=== PATIENT | male | born 1965 | race Caucasian/White ===

== ENCOUNTER 2020-02-07 17:54 | Emergency (ER) | payer OTHER, SELFPAY ==
[2020-02-07 17:56] VITALS: BP 140/93; PULSE 84; RESP 18; TEMP 36.6; O2SAT 99; BMI 24.4
--- NOTE | 2020-02-07 18:02 | ED.RN ---
this rn called to see if drug test was needed. Joan Barraza patient financial services manager said it was completed on site. no need to at hospital
--- NOTE | 2020-02-07 18:04 | ED.VISSUMM ---
- ER Visit Summary Date of Service: 02/07/20 Chief Complaint: Laceration History of Present Illness: The patient is a [address] Bret Batista. He is unsure when his last tetanus shot was. He is right-hand dominant. 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 He denies any pain. No paresthesias distally. Physical Examination: Vitals: Stable. Afebrile. General: Well-nourished and well-developed. Head: Normocephalic atraumatic. Neck: Supple, no lymphadenopathy. No JVD. Nontender. Cardiovascular: Regular rate and rhythm. No murmurs. Respiratory: No respiratory distress. Clear to auscultation bilaterally. Abdominal: Soft, nontender, nondistended, normal bowel sounds. No guarding, rebound, or peritoneal signs. Back: Nontender. Extremities: 2 cm laceration to the anterior surface of the proximal left forearm. This extends to subcutaneous fat only. There is no muscle or tendon involvement. He is neuro vas intact distally. Normal sensation light touch and less than 2-second cap refill. Skin: Normal color, no rash. Neurologic: Alert and oriented ?3. Cranial nerves II through XII are intact. Normal strength and sensation. Psych: Normal affect. Emergency Department Course and Treatment: Patient had his tetanus updated. His wound was anesthetized and repaired. He tolerated this well. Treatment Plan: Patient be discharged instructed to follow-up with [facility] in 10 to 14 days for suture removal. Return to the emergency department for any worsening symptoms. Disposition: To home in improved and stable condition. Impression: 1. Laceration left forearm, 2 cm, repaired. Procedure note: Wound was cleansed with chlorhexidine soap. Anesthetized with 1% lidocaine without epinephrine. Copiously irrigated with normal saline. Wound was explored there is no foreign material present. It was closed with 5 simple interrupted 4-0 ethilon sutures. The patient tolerated it well. This note was generated with [employer] dictation software. It may contain incorrect words, spelling, and punctuation that were not noted in review of the chart prior to signing ED Disposition - Plan for ED Patient: Instructions: ED Laceration Ext Sutr Stap Tape Referrals: [facility]GROUP OF PHYSICIANS] - 10-14 Days suture removal
[2020-02-07] MEDS: Diphth,Pertuss(Acell),Tet Vac 0.5 ML Vial IM (18:35)
--- NOTE | 2020-02-07 18:35 | ED.RN ---
PT GIVEN FROI. DRUG TESTING COMPLETED PRIOR TO ARRIVAL TO ED.
[2020-02-07 19:09] VITALS: RESP 18
== END 2020-02-07 19:11 | disposition home or self-care (01) ==
LOC: ED 18:30
PROVIDERS: Emergency Provider Emergency Medicine; PCP Family Medicine
DX: S51.812A Laceration without foreign body of left forearm, initial encounter (principal); W26.8XXA Contact with other sharp object(s), not elsewhere classified, initial encounter; Y93.9 Activity, unspecified; Y92.9 Unspecified place or not applicable
CPT/HCPCS: 12001; 90471; 90715; 99283

== ENCOUNTER → 2023-02-14 | Outpatient (CLI) | payer OTHER, SELFPAY | END | disposition home or self-care (01) | LOC: MTLAB 13:20 | PROVIDERS: PCP Family Medicine; Referring Provider Physician Assistant Surgical; Visit Provider Physician Assistant Surgical | DX: K58.9 Irritable bowel syndrome, unspecified (principal) | CPT/HCPCS: 87506 ==

== ENCOUNTER → 2023-05-29 | Outpatient (CLI) | payer OTHER, SELFPAY ==
--- NOTE | 2023-05-29 17:09 | RAD_ITS ---
INDICATION: injury EXAMINATION/TECHNIQUE: X-RAY - RIGHT FOOT XR Toes Min 2 Views 3 VIEWS COMPARISON: No relevant prior comparison study available FINDINGS: SOFT TISSUES: No soft tissue swelling or gas. No radiopaque foreign body. BONES/JOINTS: No acute fracture or subluxation.. Normal alignment. Preservation of the joint space.. No sclerotic or destructive changes observed. RAD/Toe(s) Min 2 Views IMPRESSION: No fracture or malalignment. Electronically Signed: Connor Hopper MD at 17:32 EST ,
== END | disposition home or self-care (01) ==
LOC: MTRAD 17:09
PROVIDERS: PCP Family Medicine; Referring Provider Physician Assistant; Visit Provider Physician Assistant
DX: S99.921A Unspecified injury of right foot, initial encounter (principal)
CPT/HCPCS: 73660

== ENCOUNTER → 2023-10-29 | Outpatient (CLI) | payer OTHER, SELFPAY ==
[2023-10-29 16:42] LABS: Absolute Lymphocyte Count 1.75 X10^3/uL (0.83-4.51); Absolute Neutrophil Count 8.5 X10^3/uL (2.0-7.7); Basophil# 0.03 X10^3/uL; Basophil% 0.3 % (0-1); Eosinophil# 0.07 X10^3/uL; Eosinophils% 0.6 % (0-5); Hematocrit 44.9 % (40-54); Hemoglobin 14.8 g/dL (13.0-16.5); Lymphocyte # 1.75 X10^3/ul (0.83-4.51); Lymphocyte % 15.8 % (19-41); Mean Corpuscular Hgb 28.9 pg (27.0-32.0); Mean Corpuscular Volume 87.7 fL (80-94); Mean Platelet Vol. 12.4 fl (6.2-12.0); Monocyte# 0.66 X10^3/uL; NRBC Flagged by Analyzer 0 % (0-5); Neutrophil # 8.53 X10^3/uL (2.7-7.7); Neutrophil % 76.8 % (47-70); POSITIVE COUNT YES; RBC Distribution Width CV 13.2 % (11.6-14.6); RBC Distribution Width SD 42.3 fl (35.1-43.9); Red Blood Count 5.12 M/mm3 (4.6-6.2); White Blood Count 11.1 K/mm3 (4.4-11.0)
[2023-10-29 17:12] LABS: Differential Indicated SCAN CRITERIA MET
[2023-10-29 17:14] LABS: Platelet Estimate ADEQUATE (ADEQ); Red Cell Morphology N CHROM NORMAL (NORM C&C)
[2023-10-29 17:29] LABS: ALB/GLOB Ratio 0.7 RATIO (0.9-2.4); AST(SGOT) 23 U/L (15-37); Alanine Aminotransfer ALT/SGPT 20 U/L (16-61); Albumin, Serum 2.8 g/dL (3.2-5.0); Alkaline Phosphatase 82 U/L (45-117); Anion Gap 7 (5-15); BUN 10 mg/dL (7-18); BUN/Creat Ratio 10.2 RATIO (10-20); Calcium,Total 8.7 mg/dL (8.5-10.1); Chloride 104 mmol/L (98-107); Creatinine, Serum 0.98 mg/dL (0.70-1.30); EST Glomerular Filtration Rate 83 mL/min (>60); Est Glom Filt Rate - Afr Amer 100 mL/min (>60); Globulin 3.8 g/dL (2.2-4.2); Glucose 88 mg/dL (74-106); Lipase 41 U/L (13-75); Potassium 3.2 mmol/L (3.5-5.1); Protein, Total 6.6 g/dL (6.4-8.2); Sodium Level 139 mmol/L (136-145)
== END | disposition home or self-care (01) ==
LOC: BIMLAB 16:08
PROVIDERS: PCP Family Medicine; Referring Provider Nurse Practitioner; Visit Provider Nurse Practitioner
DX: R19.7 Diarrhea, unspecified (principal)
CPT/HCPCS: 36415; 80053; 83690; 85025

== ENCOUNTER → 2023-10-30 | Outpatient (CLI) | payer SELFPAY ==
[2023-10-31 16:10] LABS: Giardia Lamblia, Stool EIA Negative (Negative)
== END | disposition home or self-care (01) ==
LOC: LABSPEC 09:36
PROVIDERS: PCP Family Medicine; Visit Provider Nurse Practitioner
DX: R19.7 Diarrhea, unspecified (principal); K58.9 Irritable bowel syndrome, unspecified
CPT/HCPCS: 87329; 87493; 87506

== ENCOUNTER 2023-11-22 06:16 | Day surgery (SDC) | payer SELFPAY ==
[2023-11-22] VITALS (8 sets, daily range): BP systolic 94–103; BP diastolic 54–70; PULSE 73–83; RESP 16–18; TEMP 36.3–36.9; O2SAT 98–100; BMI 22.6
--- NOTE | 2023-11-22 | COLBX_PTH ---
PATIENT: EMERALD HILL LOC: EN U#:[id number] AGE/SX: 58/M ROOM: RE11/22/[address]: Dr. Anjum George MD : 1965 BED: DIS: 11/22/2023 SPEC #: [id number] RECD: 11/22/23 12:53 STATUS: TALIA HUFF #: [id number] STEFFANY: 11/22/23 00:[address]: Anjum George DEPT: SURGICAL PATHOLOGY RECD BY: Nehemiah Harrington ENTERED: 11/22/23 13:15 SP TYPE: COLON BX OTHR DR: Dr. Bret Batista, DO Tissues: A - COLON BIOPSY B - Rectum, NOS Procedures: Surgery Specimen Level IV HEADER OPERATION: Colonoscopy with biopsies PRE-OP DIAGNOSIS: Bloody diarrhea TISSUE SUBMITTED: A- Random biopsies, B- Rectal biopsy MICROSCOPIC DIAGNOSIS A. Colon, random biopsies: Moderate chronic active colitis. See microscopic description and comment. B. Rectal biopsy: Moderate chronic active colitis. See microscopic description and comment. CLAUDE/ 11/25/2023 COMMENT A, B. The findings are consistent with inflammatory bowel disease. Correlation with clinical, endoscopic findings and appropriate follow up are necessary. MICROSCOPIC DESCRIPTION Slides are reviewed. A, B. Both specimens show similar features. Specimens show fragments of colonic mucosa with focal ulceration, acute and chronic inflammatory cells infiltrate in the lamina propria, cryptitis, crypt abscesses, and glandular distortion. Granulomas are not seen. No evidence of dysplasia. GROSS DESCRIPTION A. Received in fixative is one container labeled with the patient's name and designated Random biopsies. The specimen consists of multiple irregular fragments of light rubi soft tissue that in aggregate measure 2.0 x 0.5 x 0.1 cm. The specimen is totally submitted in one cassette. B. Received in fixative is one container labeled with the patient's name and designated Rectal biopsy. The specimen consists of multiple irregular fragments of light rubi soft tissue that in aggregate measure 1.0 x 0.5 x 0.1 cm. The specimen is totally submitted in one cassette. CLAUDE/ 11/22/2023 TC:2 CPT:06705l5
[2023-11-22] MEDS: Lactated Ringers 1,000 ML 15 ML IV (06:50)
--- NOTE | 2023-11-22 06:59 | HP.PCM_ITS ---
History and Physical Date of Admission: 11/22/23 Intake Vital Signs 10/28/2414:43 11/11/2407:44 Height 6 ft 1 in 6 ft 1 in Weight: 181 lb 4 oz 180 lb BMI 23.9 23.7 BP 138/80 H 105/66 Blood Pressure Location Lt brachial Rt brachial Position Sitting Sitting Respiration 16 18 Pulse 90 76 Pulse Source Monitor Monitor Temp 97.3 F L 97.6 F L Temp Source Temporal Temporal Pulse Oximetry (%) 96 96 Oxygen Delivery Method room air room air Intake Visit Reasons: Diarrhea Chief Complaint: diarrhea Is patient in pain?: No Allergies Penicillins Allergy (Verified 11/11/23 08:45) NEEDS FOLLOW-UP Medications ?Medication ?Instructions ?Recorded ?Confirmed ?Type NK 02/07/20 11/11/23 History Have you fallen in the past year?: No PFSH Medical History Avulsion of skin of toe Contusion of right great toe without damage to nail No active medical problems Surgical History No pertinent past surgical history Social History (Updated 11/11/23 @ 08:44 by Maggie Villegas LPN) Smoking Status: Never smoker alcohol intake: never substance use type: does not use HPI HPI HPI: Patient is a 58-year-old male here for diarrhea. He says this has been going on for several weeks. He says occasionally it is bloody. Occasionally it is just watery. He says that he was not eating for a long time because it would cause immediate diarrhea. He had stool studies performed. He does have a history of Campylobacter infection last year. Stool studies were all negative. He does n ot complain of any abdominal pain. He does not have any nausea or vomiting. His last colonoscopy was over 10 years ago. He has a family history of colitis but no colon cancer. ROS General General: Yes weight change (loss ) and fatigue; No appetite, colon cancer, breast cancer or weakness HEENT HEENT: No difficulty swallowing, eye injury, eye surgery, swollen glands or hoarseness Endo Endocrine: No thyroid disease, diabetes mellitus, thyroid cancer, Hair loss, heat intolerance or cold intolerance Skin Skin: No rash or changing moles Musc Musculoskeletal: No back problems, arthritis, rheumatoid arthritis, gout or joint pain Cardio Cardiovascular: No murmur, pacemaker, heart disease, atrial fibrillation, high blood pressure, heart attack, heart stent, palpitations, shortness of breat with exertion or chest pain Psych Psychiatric: No depression, anxiety or hearing voices Resp Respiratory: No shortness of breath, No sleep apnea, No cough, No COPD, No asthma, No emphysema and No wheezing Gastro Gastrointestinal: No abdominal pain, No nausea or vomiting, Yes diarrhea, No constipation, Yes blood in stool, No acid reflux, Yes hemorrhoids, No ulcers, No gallbladder problem and No black,tarry stools Norman Hematologic: No blood thinners, No blood disorders, No bleeding, No anemia and No blood clots Neuro Neurologic: No numbness, No tingling and No weakness Exam Const General: cooperative Orientation: alert and oriented x3 HENMT Head: normal to inspection Neck Neck: normal visual inspection and full ROM Chest Chest palpation & inspection: normal inspection of the chest Resp Effort & Inspection: normal respiratory effort Auscultation: clear to auscultation bilaterally Cardio Rate: regular rate Rhythm: regular rhythm GI Inspection: non-distended Palpation: soft and nontender Skin General: no rashes or lesions noted Neuro General: patient alert and patient oriented x3 Extrem General: full ROM Psych Appearance: grossly normal Mental Status: mental status grossly normal Assessment and Plan Assessment and Plan (1) Bloody diarrhea: Status: Acute Plan: The patient is having diarrhea which is occasionally bloody. This is been going on for a few weeks. I recommend colonoscopy to evaluate. He is not complaining of any upper abdominal pain or reflux. I explained endoscopy in detail to the patient. I explained the risks including but not limited to stroke or heart attack with anesthesia, perforation of the GI tract, bleeding, infection. I explained that any of these could necessitate further emergency surgery. The patient understands and all questions were answered sufficiently. The patient wishes to proceed with procedure. I will take random biopsies of the colon to rule out microscopic colitis. Anjum George MD Pager: [facility] [address] [place] [address], [address] [place] [address] Office: I have examined the patient and the H&P has been reviewed. There are no clinical changes since date of exam.
--- NOTE | 2023-11-22 07:23 | PCM.PRE.AN2 ---
ASA Classification* ASA Classification ASA Classification: 2 Assessment & Plan Anesthesia* Anesthesia Assessment Anesthesia Assessment: Discussed sedation and/or anesthesia options, risks, benefits, and alternatives with patient/parents/legal guardian/POA. Questions invited. The patient/parents/legal guardian/POA seems to understand and agrees to proceed with anesthesia plan. Reviewed the physical assessment, medical history, allergy history and patient home medications list prior to surgery/procedure/anesthetic and documented any changes. Performed airway and anesthesia risk assessments. Anesthesia Type Anesthesia Type: MAC (see written pre anesthesia record for full assessment) Anesthesia Focused Assessment* Temperature: 98.5 F Pulse Rate: 83 Blood Pressure: 103/70 Respiratory Rate: 17 Pulse Ox: 98 Airway Assessment Mouth opens: >3 cm Mallampati Score: II Focused Labs Anesthesia Preop lab: CBC WBC 11.1 K/mm3 (4.4-11.0) H 10/29/23 16:10 RBC 5.12 M/mm3 (4.6-6.2) 10/29/23 16:10 Hgb 14.8 g/dL (13.0-16.5) 10/29/23 16:10 Hct 44.9 % (40-54) 10/29/23 16:10 Plt Count TNP 10/29/23 16:10 CHEMISTRY Potassium 3.2 mmol/L (3.5-5.1) L 10/29/23 16:10 Sodium 139 mmol/L (136-145) 10/29/23 16:10 BUN 10 mg/dL (7-18) 10/29/23 16:10 Creatinine 0.98 mg/dL (0.70-1.30) 10/29/23 16:10 Glucose 88 mg/dL (74-106) 10/29/23 16:10 COAG Pre-Assessment Diagnosis/Proposed Procedure Planned Operative Procedure(s): COLONOSCOPY Anesthesia History Anesthesia History - solid waste management engineer: Anesthesia History - solid waste management engineer Hx Hospitalization No 11/15/23 14:07 Any Problems With Anesthesia No 11/15/23 14:07 Cholinesterase deficiency No 11/15/23 14:07 You/Your Family Experience No 11/15/23 14:07 fever (hyperthermia) with Relationship Recent Exposure to Contagious No 11/22/23 06:47 Disease Does patient have nerve No 11/15/23 14:07 stimulator Patient instructed to have device shut off --Does patient have Pacemaker No 11/22/23 06:47 or ICD? When Was Last Pacemaker Check QUESTION #4 FULL TEXT: You/Your Family Experience fever (hyperthermia) with Anesthesia Last Oral Intake Last Oral intake: Last Oral Intake NPO since 00:00 11/22/23 06:47 Meds taken in AM with sips of No 11/22/23 06:47 water? Meds patient instructed to take am of surgery PONV PONV - solid waste management engineer: PONV - solid waste management engineer Female No 11/15/23 14:07 HX of Motion Sickness No 11/15/23 14:07 HX of N/V After Surgery No 11/15/23 14:07 Non-Smoker Yes 11/15/23 14:07 Duration of Surgery greater No 11/15/23 14:07 than 60 minutes Number of Risk Factors 1 11/15/23 14:07 PONV Score Low Risk 11/15/23 14:07 Height & Weight Height & Weight: Anesthesia: Height & Weight Height 6 ft 1 in 11/22/23 06:47 Weight: 78 kg 11/22/23 06:47 Body Mass Index (BMI) 22.6 11/22/23 06:47 Respiratory Assessment Respiratory Assessment - solid waste management engineer: Respiratory Tract Infection Hx - solid waste management engineer Hx Respiratory Tract Infection No 11/15/23 14:07 STOP Sleep Apnea STOP Sleep Apnea - solid waste management engineer: STOP Sleep Apnea - solid waste management engineer Hx Hypertension No 11/15/23 14:07 Hx Sleep Apnea No 11/15/23 14:07 CPAP BIPAP Do you snore loudly (louder No 11/15/23 14:07 than talking or can be heard Do you often feel tired/ No 11/15/23 14:07 fatigued/ sleepy during daytime? Has anyone observed you stop No 11/15/23 14:07 breathing during sleep? STOP Results Negative 11/15/23 14:07 QUESTION #5 FULL TEXT : Do you snore loudly (louder than talking or can be heard through closed doors)? Tobacco Use History Tobacco Use History - solid waste management engineer: Tobacco Use History - solid waste management engineer Tobacco Use Smoking Status Never smoker 11/15/23 14:07 Hx Tobacco Use No 11/15/23 14:07 Years Smoking Packs Smoked per Day Smoking Cessation Date was within the last 15 years Hx Smoking Cessation Date Hx Smoking Cessation Counseling Hematologic Medial History Hematologic Hx - solid waste management engineer: Hematologic Medical Hx - senior computer specialist Hx of Blood Transfusion No 11/15/23 14:07 Hx of Transfusion in last 3 No 11/15/23 14:07 Months Date of Last Transfusion (if within last 3 months) Ever experience any problems No 11/15/23 14:07 with transfusion(s)? Specify any problems Hx of Preganancy in last 3 N/A 11/15/23 14:07 Months Nurse Filling Out Transfusion [id number] 11/15/23 14:07 & Questions: Date: 11/15/23 11/15/23 14:07 Time: 14:10 11/15/23 14:07 Patient unable to answer at this time (ie. confused, unrespo /Reproduction History /Reproductive History - solid waste management engineer: /Reproductive Hx- solid waste management engineer Hx Now Gestational Age (in weeks): EDC: Hx Hx Para Hx Section SAB Active Medications Active Medications: Current Medications Generic Name Dose Route Start Last Admin Trade Name Freq PRN Reason Stop Dose Admin Lactated Ringer's 1,000 mls @ 15 mls/hr 11/22/23 06:30 11/22/23 06:50 IV 15 mls/hr .Q48H LAWSON Administration PFSH Medical History Diarrhea Non-smoker Avulsion of skin of toe Contusion of right great toe without damage to nail No active medical problems Home Medications ?Medication ?Instructions ?Recorded ?Last Taken ?Type NK 02/07/20 Unknown History Allergy/AdvReac Type Severity Reaction Status Date / Time Penicillins Allergy NEEDS Verified 11/22/23 06:46 FOLLOW-UP Social History (Updated 11/11/23 @ 08:44 by Maggie Villegas LPN) Smoking Status: Never smoker alcohol intake: never substance use type: does not use Review of Systems (Anesthesia) ROS Narrative System reviewed and no additional complaints, except as documented.
--- NOTE | 2023-11-22 08:01 | PCM.POST.ANE ---
Anesthesia: Postop Eval I Current Vital Signs Temperature: 97.4 F Pulse Rate: 75 Blood Pressure: 97/57 Respiratory Rate: 16 Pulse Ox: 99 Oxygen Delivery Method: Room Air Assessment Airway patent: Yes Spontaneous unlabored respirations: Yes Mental status: Awake and Calm nausea: No Vomiting: No Anesthesia Complication: No Fluid Hydration Crystalloid volume administer (ml): 900 Total IV fluid infused: 900 Progress Note Anesthesia document: Postop Eval 1 completed: Yes
--- NOTE | 2023-11-22 08:06 | OP.COLON_ITS ---
Patient Name: Job Crook Procedure Date: 11/22/2023 7:13 AM Date of : 1965 Age: 58 Procedure: Colonoscopy Indications: Rectal bleeding, Chronic diarrhea Providers: Anjum George MD Referring MD: Bret Batista Medicines: Propofol per Anesthesia Patient Profile: This is a 58 year old male. Refer to note in patient chart for documentation of history and physical. Last Colonoscopy: none. The patient's first colonoscopy is today. Complications: No immediate complications. Procedure: Pre-Anesthesia Assessment: - Prior to the procedure, a History and Physical was performed, and patient medications and allergies were reviewed. The patient's tolerance of previous anesthesia was also reviewed. The risks and benefits of the procedure and the sedation options and risks were discussed with the patient. All questions were answered, and informed consent was obtained. Prior Anticoagulants: The patient has taken no anticoagulant or antiplatelet agents. After reviewing the risks and benefits, the patient was deemed in satisfactory condition to undergo the procedure. After I obtained informed consent, the scope was passed under direct vision. Throughout the procedure, the patient's blood pressure, pulse, and oxygen saturations were monitored continuously. The colonoscope was introduced through the anus and advanced to the cecum, identified by appendiceal orifice and ileocecal valve. The colonoscopy was performed without difficulty. The patient tolerated the procedure well. The quality of the bowel preparation was good. The ileocecal valve, appendiceal orifice, and rectum were photographed. Scope In: 7:36:48 AM Scope Withdrawal Time 0 hours 11 minutes 47 seconds Scope Out: 7:53:52 AM Total Procedure Duration Time 0 hours 17 minutes 4 seconds Findings: Diffuse moderate inflammation characterized by friability and shallow ulcerations was found in the rectum. Biopsies were taken with a cold forceps for histology. The exam was otherwise without abnormality on direct and retroflexion views. 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 Biopsied. - The examination was otherwise normal on direct and retroflexion views. Recommendation: - Discharge patient to home. - Resume previous diet. - Continue present medications. - Await pathology results. - Repeat colonoscopy for surveillance based on pathology results. Procedure Code(s): --- Professional --- 30862, Colonoscopy, flexible; with biopsy, single or multiple Diagnosis Code(s): --- Professional --- K51.311, Ulcerative (chronic) rectosigmoiditis with rectal bleeding K62.5, Hemorrhage of anus and rectum K52.9, Noninfective gastroenteritis and colitis, unspecified CPT copyright 2021 [employer]. All rights reserved. The codes documented in this report are preliminary and upon programs director review may be revised to meet current compliance requirements. Anjum George MD 11/22/2023 8:05:38 AM This report has been signed electronically. Number of Addenda: 0 Note Initiated On: 11/22/2023 7:13 AM
--- NOTE | 2023-11-22 08:06 | OP.CCLET_ITS ---
11/22/2023 Bret Batista Re : Colonoscopy procedure for Job Crook Dear Dr. Batista This procedure was performed on Wednesday, November 22, 2023. 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 Biopsied. - The examination was otherwise normal on direct and retroflexion views. Recommendations : - Discharge patient to home. - Resume previous diet. - Continue present medications. - Await pathology results. - Repeat colonoscopy for surveillance based on pathology results. My findings are described in the full procedure note, which is enclosed. If I can be of further assistance, please feel free to contact me at Doctor phone number(s): , Work: . Sincerely, Anjum George MD 11/22/2023 8:05:38 AM This report has been signed electronically.
--- NOTE | 2023-11-22 08:11 | PCM.POSTANE2 ---
Anesthesia Postop Eval I Sum Postop Eval Completion status Anesthesia document: Postop Eval 1 completed: Yes Anesthesia Postop Eval I Summary Anesthesia Postop Eval I Summary: Anesthesia Postop Eval I: Assessment Summary Airway patent Yes 11/22/23 08:04 Spontaneous unlabored Yes 11/22/23 08:04 respirations Mental status Awake,Calm 11/22/23 08:04 nausea No 11/22/23 08:04 Vomiting No 11/22/23 08:04 Anesthesia Postop Eval I: Fluid Summary Crystalloid volume administer 900 11/22/23 08:04 (ml) Colloids volume administered ( ml) Blood Product volume administered (ml) Total IV fluid infused 900 11/22/23 08:04 Anesthesia Postop Eval I: Summary Notes Anesthesia Complication No 11/22/23 08:04 Anesthesia Complication Comment: Post-operative progress note Anesthesia: Postop Eval II Evaluation Mental status: Awake Pain Level: 0 nausea: No Vomiting: No
== END 2023-11-22 08:36 | disposition home or self-care (01) ==
LOC: EN 06:21 → AC 06:22
PROVIDERS: PCP Family Medicine; Referring Provider Family Medicine; Visit Provider Surgery
PROC: 0DJD8ZZ Inspection of Lower Intestinal Tract, Via Natural or Artificial Opening Endoscopic (ICD-10-PCS; CPT 45378; principal; 2023-11-22 07:25)
DX: K51.311 Ulcerative (chronic) rectosigmoiditis with rectal bleeding (principal); K62.5 Hemorrhage of anus and rectum
CPT/HCPCS: 45380; 88305; J7120; J2405

== ENCOUNTER → 2024-01-16 | Outpatient (CLI) | payer MEDICAID, SELFPAY ==
[2024-01-16 15:20] LABS: Absolute Lymphocyte Count 1.61 X10^3/uL (0.83-4.51); Absolute Neutrophil Count 8.4 X10^3/uL (2.0-7.7); Basophil# 0.06 X10^3/uL; Basophil% 0.6 % (0-1); Eosinophil# 0.07 X10^3/uL; Eosinophils% 0.6 % (0-5); Hematocrit 41.7 % (40-54); Hemoglobin 12.9 g/dL (13.0-16.5); Lymphocyte # 1.61 X10^3/ul (0.83-4.51); Lymphocyte % 14.9 % (19-41); Mean Corp Hgb Conc 30.9 g/dL (32-36); Mean Corpuscular Hgb 27.2 pg (27.0-32.0); Mean Platelet Vol. 12.9 fl (6.2-12.0); Monocyte% 6.5 % (0-10); NRBC Flagged by Analyzer 0 % (0-5); Neutrophil # 8.35 X10^3/uL (2.7-7.7); Neutrophil % 77.1 % (47-70); POSITIVE COUNT YES; RBC Distribution Width CV 13.3 % (11.6-14.6); RBC Distribution Width SD 43.3 fl (35.1-43.9); Red Blood Count 4.74 M/mm3 (4.6-6.2); White Blood Count 10.8 K/mm3 (4.4-11.0)
[2024-01-16 15:39] LABS: Vitamin B12 357 pg/mL (211-911); Vitamin D,25 Hydroxy 51.5 ng/mL
[2024-01-16 15:50] LABS: ALB/GLOB Ratio 0.9 RATIO (0.9-2.4); AST(SGOT) 12 U/L (15-37); Alanine Aminotransfer ALT/SGPT 13 U/L (16-61); Albumin, Serum 3.3 g/dL (3.2-5.0); Alkaline Phosphatase 84 U/L (45-117); Anion Gap 3 (5-15); BUN 9 mg/dL (7-18); BUN/Creat Ratio 10.1 RATIO (10-20); CRP 5.61 mg/L (0.0-3.0); Calcium,Total 9.1 mg/dL (8.5-10.1); Chloride 106 mmol/L (98-107); Creatinine, Serum 0.89 mg/dL (0.70-1.30); EST Glomerular Filtration Rate 93 mL/min (>60); Est Glom Filt Rate - Afr Amer 112 mL/min (>60); Globulin 3.7 g/dL (2.2-4.2); Glucose 103 mg/dL (74-106); LDH 136 U/L (87-241); Potassium 4.4 mmol/L (3.5-5.1); Sodium Level 139 mmol/L (136-145)
[2024-01-16 15:51] LABS: Differential Indicated SCAN CRITERIA MET
[2024-01-16 15:57] LABS: Differential Comment SCANNED
[2024-01-16 15:58] LABS: Erythrocyte Sedimentation Rate 4 mm/hr (0-20); Platelet Estimate ADEQUATE (ADEQ)
[2024-01-28 01:07] LABS: QNTFERON TB Mitogen Value > 10.00 IU/mL (.); QNTFERON TB Nil Value 0 IU/mL (.); QNTFERON TB1+ Ag Value 0 IU/mL (.); QNTFERON TB2+ Ag Value 0 IU/mL (.); QNTIFERON TB Positive Criteria Negative (Negative); Vitamin A, Retinol 30.4 ug/dL (20.1-62.0)
== END | disposition home or self-care (01) ==
PROVIDERS: PCP Family Medicine
DX: K51.911 Ulcerative colitis, unspecified with rectal bleeding (principal)
CPT/HCPCS: 36415; 80053; 82306; 82607; 82746; 83615; 84590; 85025; 85652; 86140; 86480

== ENCOUNTER → 2024-01-17 | Outpatient (CLI) | payer MEDICAID, SELFPAY ==
[2024-01-20 22:07] LABS: Calprotectin, Stool 137 ug/g (0-120)
== END | disposition home or self-care (01) ==
LOC: LAB 10:06 → LABSPEC 10:06
PROVIDERS: PCP Family Medicine
DX: K51.911 Ulcerative colitis, unspecified with rectal bleeding (principal)
CPT/HCPCS: 83630; 83993

== ENCOUNTER → 2024-01-28 | Outpatient (CLI) | payer MEDICAID, SELFPAY ==
[2024-01-28 16:33] LABS: LDH 154 U/L (87-241)
[2024-01-30 14:10] LABS: Anti-Centromere B Ab <0.2 AI (0.0-0.9); Anti-Chromatin <0.2 AI (0.0-0.9); Anti-Jo <0.2 AI (0.0-0.9); Anti-Mitochondrial AB 21.9 Units (0.0-20.0); Anti-Scleroderma-70 AB <0.2 AI (0.0-0.9); Anti-dsDNA Ab <1 IU/mL (0-9); RNP Ab 1.2 AI (0.0-0.9); SJOGREN'S Anti-SS-A test < 0.2 AI (0.0-0.9); SJOGREN'S Anti-SS-B test < 0.2 AI (0.0-0.9); Smith Ab <0.2 AI (0.0-0.9)
[2024-02-04 10:10] LABS: ACCA 17 units (0-90); ALCA 14 units (0-60); AMCA 37 units (0-100); Albumin 3.4 g/dL (2.9-4.4); Alpha-1-Globulins 0.3 g/dL (0.0-0.4); Alpha-2-Globulins 0.6 g/dL (0.4-1.0); Anti-Smooth Muscle ABS 20 Units (0-19); Cytoplasmic Ab (C-ANCA) <1:20 titer (Neg:<1:20); Endomysial Antibody IgA Negative (Negative); Gamma Globulin 1.3 g/dL (0.4-1.8); IgG, Quant 1313 mg/dL (603-1613); Immunoglobulin A 285 mg/dL (90-386); Immunoglobulin E 61 IU/mL (6-495); Immunoglobulin G, Subclass 1 512 mg/dL (248-810); Immunoglobulin G, Subclass 2 496 mg/dL (130-555); Immunoglobulin G, Subclass 3 116 mg/dL (15-102); Immunoglobulin G, Subclass 4 117 mg/dL (2-96); Immunoglobulin M 176 mg/dL (20-172); PROEL- TOTAL PROTEIN 6.6 g/dL (6.0-8.5); Perinuclear Ab (P-ANCA) <1:20 titer (Neg:<1:20); gASCA 61 units (0-50); t-Transglutaminase IgA <2 U/mL (0-3)
== END | disposition home or self-care (01) ==
LOC: LAB 15:04
PROVIDERS: PCP Family Medicine
DX: K51.911 Ulcerative colitis, unspecified with rectal bleeding (principal)
CPT/HCPCS: 36415; 82784; 82785; 82787; 83516; 83615; 84165; 86036; 86225; 86235; 86255; 86256; 86334; 86671

== ENCOUNTER → 2024-03-05 | Outpatient (CLI) | payer MEDICAID, SELFPAY ==
[2024-03-05] VITALS (14 sets, daily range): BP systolic 108–145; BP diastolic 68–88; PULSE 59–72; RESP 10–14; TEMP 36.3; O2SAT 90–99; BMI 22.4
--- NOTE | 2024-03-05 | LIVB_PTH ---
PATHOLOGY RESULTS PATIENT: EMERALD HILL LOC: [place] U#:[id number] AGE/SX: 58/M ROOM: RE03/05/[address]: JENNIFER Valadez : 1965 BED: DIS: 03/05/2024 SPEC #: [id number] RECD: 03/05/24 10:42 STATUS: TALIA RESilvio #: [id number] STEFFANY: 03/05/24 00:[address]: Ksenia Sanders DEPT: SURGICAL PATHOLOGY RECD BY: Nehemiah Harrington ENTERED: 03/05/24 11:40 SP TYPE: LIVER BX OTHR DR: Dr. Bret Batista DO Tissues: Liver, NOS Procedures: PAS with Diastase (control) Trichrome (control) Special Stain Group I PAS Stain (control) Surgery Specimen Level V Retic (control) Iron Stain (control) HEADER OPERATION: CT guided liver biopsy PRE-OP DIAGNOSIS: Autoimmune cholangiopathy TISSUE SUBMITTED: 18-gauge x 3 cores MICROSCOPIC DIAGNOSIS Liver, CT guided core biopsy: Liver parenchymal tissue with mild reactive changes in the hepatocytes. See microscopic description and comment. 03/06/2024 COMMENT Correlation with clinical, radiologic, laboratory findings and appropriate follow up are necessary. MICROSCOPIC DESCRIPTION Slides are reviewed. The specimen shows liver parenchymal tissue with preserved lobular architecture. Hepatocytes shows mild reactive changes. Central vein in the lobules is mildly dilated and congested. Focal dilatation of sinusoids is also noted. Portal areas do not reveal significant inflammation. Interface inflammation is not seen. Iron stain shows absent iron. Reticulin stain highlights normal lobular architecture. Trichrome stain does not show any increased portal or periportal fibrosis. PAS stain with and without diastase do not show any abnormal accumulation of protein. All stains are performed with appropriate matched controls. GROSS DESCRIPTION Received is one container labeled with the patient's name and not further designated. The specimen consists of multiple elongated fragments of rubi soft tissue that in aggregate measure 1.5 x 0.2 x 0.1 cm. The specimen is totally submitted in one cassette. 03/05/2024 TC:5 CPT:88287,51950l1
--- NOTE | 2024-03-05 08:52 | CT_ITS ---
PROCEDURE: CT DIRECTED CORE LIVER BIOPSY INDICATION: Male, 58 years old. Autoimmune cholangiopathy PHYSICIAN: Dr. Stefany Peace CONSENT: Written informed consent was obtained having explained the risks, benefits and alternatives in detail with the patient who accepted the risks and agreed to proceed. Laboratory review and clinical assessment was performed. CONSCIOUS SEDATION PROTOCOL: The Drugs used were: 3 mg Versed, IV., and 50 mcg Fentanyl, IV. The sedation time was: 21 minutes. Conscious sedation was started at 9:36 AM and was terminated at 9:57 AM. The conscious sedation protocol was independently monitored. RADIATION DOSAGE (If Supplied By Facility): CTDIvol = ( 17 ) mGy, DLP = ( 298.4 ) mGycm Individualized dose optimization techniques were used for this CT. TECHNIQUE: Using CT image guidance with image documentation, a suitable location in the left lobe of the liver was identified. Using an anterior approach, puncture of the liver was uneventful with an 18-gauge core needle system. 3, 18-gauge core samples were obtained, and submitted in formalin to the pathologist for further assessment. Followup CT scan revealed no distinct sequelae. CT/Biopsy/Inj or Needle Placement IMPRESSION: 1. CT directed core needle biopsy of the liver, using CT image guidance with image documentation as described. 2. Conscious Sedation protocol utilized with independent monitoring. Electronically Signed: Lenin Mccall MD at 10:33 EDT ,
[2024-03-05 09:04] LABS: Absolute Lymphocyte Count 1.31 X10^3/uL (0.83-4.51); Absolute Neutrophil Count 8.7 X10^3/uL (2.0-7.7); Basophil# 0.02 X10^3/uL; Basophil% 0.2 % (0-1); Hematocrit 45.1 % (40-54); Hemoglobin 14.5 g/dL (13.0-16.5); Lymphocyte # 1.31 X10^3/ul (0.83-4.51); Lymphocyte % 12.4 % (19-41); Mean Corp Hgb Conc 32.2 g/dL (32-36); Mean Corpuscular Hgb 27.4 pg (27.0-32.0); Mean Corpuscular Volume 85.1 fL (80-94); Monocyte# 0.49 X10^3/uL; Monocyte% 4.6 % (0-10); NRBC Flagged by Analyzer 0 % (0-5); Neutrophil # 8.69 X10^3/uL (2.7-7.7); Neutrophil % 82.2 % (47-70); Platelet Count 301 K/mm3 (150-450); RBC Distribution Width CV 13.8 % (11.6-14.6); RBC Distribution Width SD 42.7 fl (35.1-43.9); White Blood Count 10.6 K/mm3 (4.4-11.0)
[2024-03-05 09:25] LABS: International Normalized Ratio 0.9
[2024-03-05 09:26] LABS: Partial Thromboplast Time 27.9 Seconds (24.1-36.2)
[2024-03-05] MEDS: 0.9% Saline Lock 10 ML Syringe IV ×2 (09:36→09:37)
[2024-03-05] MEDS: Midazolam 2 MG/2 ML Syringe IV ×3 (09:36→09:52)
[2024-03-05] MEDS: fentaNYL 100 MCG/2 ML Ampul IV (09:38)
[2024-03-05] MEDS: Lidocaine 2% (20 ml mdv) 20 ML Vial INFILT (09:53)
== END | disposition home or self-care (01) ==
LOC: CT 08:50
PROVIDERS: PCP Family Medicine
DX: K83.09 Other cholangitis (principal)
CPT/HCPCS: 47000; 36415; 77012; 85025; 85610; 85730; 88307; 88312; 99156; A4216

== ENCOUNTER 2024-06-11 09:41 | Day surgery (SDC) | payer BC, SELFPAY ==
[2024-06-11] VITALS (9 sets, daily range): BP systolic 98–128; BP diastolic 65–78; PULSE 69–79; RESP 16–18; TEMP 36.4–36.7; O2SAT 96–100; BMI 24.2
--- NOTE | 2024-06-11 10:33 | PRE.ANES_ITS ---
ASA Classification* ASA Classification ASA Classification: 2 Assessment & Plan Anesthesia* Anesthesia Assessment Anesthesia Assessment: Discussed sedation and/or anesthesia options, risks, benefits, and alternatives with patient/parents/legal guardian/POA. Questions invited. The patient/parents/legal guardian/POA seems to understand and agrees to proceed with anesthesia plan. Reviewed the physical assessment, medical history, allergy history and patient home medications list prior to surgery/procedure/anesthetic and documented any changes. Performed airway and anesthesia risk assessments. Anesthesia Type Anesthesia Type: MAC History Source History Obtained from:: Patient and Chart Anesthesia Focused Assessment* Temperature: 98.1 F Pulse Rate: 79 Blood Pressure: 128/78 Respiratory Rate: 18 Pulse Ox: 100 Oxygen Delivery Method: Room Air Airway Assessment Mouth opens: >3 cm Mallampati Score: I Teeth Condition: Intact Neck Range of motion (ROM): Limited ROM (Slight decrease in extension) Focused Labs Anesthesia Preop lab: CBC WBC 10.6 K/mm3 (4.4-11.0) 03/05/24 08:57 03/05/24 RBC 5.30 M/mm3 (4.6-6.2) 03/05/24 08:57 03/05/24 Hgb 14.5 g/dL (13.0-16.5) 03/05/24 08:57 03/05/24 Hct 45.1 % (40-54) 03/05/24 08:57 03/05/24 Plt Count 301 K/mm3 (150-450) 03/05/24 08:57 03/05/24 CHEMISTRY Potassium 4.4 mmol/L (3.5-5.1) 01/16/24 14:47 01/16/24 Sodium 139 mmol/L (136-145) 01/16/24 14:47 01/16/24 BUN 9 mg/dL (7-18) 01/16/24 14:47 01/16/24 Creatinine 0.89 mg/dL (0.70-1.30) 01/16/24 14:47 01/16/24 Glucose 103 mg/dL (74-106) 01/16/24 14:47 01/16/24 COAG PT 12.0 SECONDS (11.7-14.9) 03/05/24 08:57 Pre-Assessment Diagnosis/Proposed Procedure Planned Operative Procedure(s): FLEX SIG Anesthesia History 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 When Was Last Pacemaker Check QUESTION #4 FULL TEXT: You/Your Family Experience fever (hyperthermia) with Anesthesia Last Oral Intake Last Oral intake: Last Oral Intake NPO since 19:00 06/11/24 10:06 Meds taken in AM with sips of water? Meds patient instructed to take am of surgery PONV PONV - buffing machine operator: PONV - buffing machine operator Female No 06/10/24 10:36 HX of Motion Sickness No 06/10/24 10:36 HX of N/V After Surgery No 06/10/24 10:36 Non-Smoker Yes 06/10/24 10:36 Duration of Surgery greater No 06/10/24 10:36 than 60 minutes Number of Risk Factors 1 06/10/24 10:36 PONV Score Low Risk 06/10/24 10:36 Height & Weight Height & Weight: Anesthesia: Height & Weight Height 6 ft 1 in 06/11/24 10:06 Weight: 83.28 kg 06/11/24 10:06 Body Mass Index (BMI) 24.2 06/11/24 10:06 Respiratory Assessment Respiratory Assessment - buffing machine operator: Respiratory Tract Infection Hx - buffing machine operator Hx Respiratory Tract Infection No 06/10/24 10:36 Any additional information?: Yes Hx Respiratory Tract Infection: Yes (Patient has had a head cold. Not completely relieved. Lungs clear) STOP Sleep Apnea STOP Sleep Apnea - buffing machine operator: STOP Sleep Apnea - buffing machine operator Hx Hypertension No 06/10/24 10:36 Hx Sleep Apnea No 06/10/24 10:36 CPAP BIPAP Do you snore loudly (louder No 06/10/24 10:36 than talking or can be heard Do you often feel tired/ No 06/10/24 10:36 fatigued/ sleepy during daytime? Has anyone observed you stop No 06/10/24 10:36 breathing during sleep? STOP Results Negative 06/10/24 10:36 QUESTION #5 FULL TEXT : Do you snore loudly (louder than talking or can be heard through closed doors)? 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 Specify any problems Hx of Preganancy in last 3 N/A 06/10/24 10:36 Months Nurse Filling Out Transfusion NBUCHER 06/10/24 10:36 & Questions: Date: 06/10/24 06/10/24 10:36 Time: 10:37 06/10/24 10:36 Patient unable to answer at this time (ie. confused, unrespo /Reproduction History /Reproductive History - buffing machine operator: /Reproductive Hx- buffing machine operator Hx Now No 06/10/24 10:36 Gestational Age (in weeks): EDC: Hx Hx Para Hx Section SAB No 06/10/24 10:36 [facility] Medical History History of ulcerative colitis Former smoker Colitis Diarrhea Non-smoker Avulsion of skin of toe Contusion of right great toe without damage to nail No active medical problems Home Medications ?Medication ?Instructions ?Recorded ?Last Taken ?Type mesalamine 1.2 gram tablet,delayed 4.8 g (4 x 1.2 gram ) PO QDAY #360 04/07/24 06/10/24 Rx release (Lialda) tabs mesalamine 1,000 mg rectal 1 g [place] .qohs 06/11/2406/08 History suppository (Canasa) Allergy/AdvReac Type Severity Reaction Status Date / Time Penicillins Allergy NEEDS Verified 06/11/24 10:00 FOLLOW-UP Surgical History History of colonoscopy Social History Smoking Status: Former smoker alcohol intake: never substance use type: does not use Review of Systems (Anesthesia) ROS Narrative System reviewed and no additional complaints, except as documented.
--- NOTE | 2024-06-11 10:43 | HP.PCM_ITS ---
HPI - General General Date of Admission: 06/11/24 Date of Service: 06/11/24 Chief Complaint: Ulcerative colitis HPI Narrative EMERALD HILL, is a 59 M who presentsChief Complaint: diarrhea Details: 58y/o male presents for an endoscopic evaluation of ulcerative colitis. He was last seen by Ksenia Sanders CNP 01/08/2024 to establish care for newly diagnosed UC. He was experiencing blood in stools and pain with BM. Sulfasalazine was disc ontinued and he was started on prednisone taper, Lialda 4.8g PO and Canasa enemas 1gm MA at HS x8 weeks. He completed therapy early March and reports significant improvement in symptoms. Frequency of stools has decreased to once daily and reports no bleeding for one week until today. He also reports improvement in rectal pain. We have discussed use of prednisone is to reverse inflammation n the acute phase with mesalamine. I have recommended he resume Mesalamine PO and MA to maintain remission. Colon 11/22/2023 ([facility]) diffuse moderate inflammation in the rectum, biopsies revealed moderate colitis. CT guided liver biopsy 03/06/2024 CBC: 01/16/2024 WNL CMP: 01/16/2024 transaminases normal CRP: 01/16/2024 5.61(H) Quantiferon: 01/16/2024 HBVsAb: HBVsAg: HBV Core Total: 01/28/2024 AMA 21.9(H), ASMA 20(H) Fecal Calprotectin 01/17/2024 (H)137 Stools: typically in the morning, 1x Bleeding: intermittent - today was first time he saw blood in a week Frequency: much better Urgency: improved Fecal Incontinence: denies ABD pain: denies Rectal pain: improved Weight loss: denies Family history of IBD: Sister and Brother with UC - prednisone for 8 weeks - had a hard time sleeping - reports he was taking at night [facility] Medical History History of ulcerative colitis Former smoker Colitis Diarrhea Non-smoker Avulsion of skin of toe Contusion of right great toe without damage to nail No active medical problems Home Medications ?Medication ?Instructions ?Recorded ?Last Taken ?Type mesalamine 1.2 gram tablet,delayed 4.8 g (4 x 1.2 gram ) PO QDAY #360 04/07/24 06/10/24 Rx release (Lialda) tabs mesalamine 1,000 mg rectal 1 g MA .qohs 06/11/2406/08 History suppository (Canasa) Allergy/AdvReac Type Severity Reaction Status Date / Time Penicillins Allergy NEEDS Verified 06/11/24 10:00 FOLLOW-UP Surgical History History of colonoscopy Social History Smoking Status: Former smoker alcohol intake: never substance use type: does not use Vital Signs Vital Signs Vital Signs: 06/11/24 10:02 06/11/24 10:06 06/11/24 10:37 Temperature 98.1 F 98.1 F Temperature Source Temporal Pulse Rate 79 79 Respiratory Rate 18 18 Respiratory Pattern Normal Blood Pressure 128/78 H 128/78 H Blood Pressure Mean 94 Blood Pressure Source Monitor Blood Pressure Position Semi-Fowlers Blood Pressure Location Right Arm Pulse Ox 100 100 Oxygen Delivery Method Room Air Room Air Weight Weight: 183 lb 9.6 oz Body Mass Index (BMI) 24.2 Physical Exam Const alert, oriented x3, no apparent distress and healthy appearing General Appearance: cooperative GI normal to inspection, nondistended, normoactive bowel sounds, soft to palpation, non-tender and non-distended Percussion: normal to percussion Rectal Exam: deferred Assessment & Plan Assessment/Plan (1) Ulcerative colitis: QUALIFIERS: Ulcerative colitis location: ulcerative rectosigmoiditis Digestive disease complication type: with rectal bleeding Qualified Code(s): 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
--- NOTE | 2024-06-11 10:45 | COLBX_PTH ---
PATIENT: EMERALD HILL LOC: EN U#:[id number] AGE/SX: 59/M ROOM: RE06/11/[address]: Dr. Edi Desai DO : 1965 BED: DIS: 06/11/2024 SPEC #: [id number] RECD: 06/11/24 14:46 STATUS: TALIA HUFF #: [id number] STEFFANY: 06/11/24 10:[address]: Edi Desai DEPT: SURGICAL PATHOLOGY RECD BY: Nehemiah Harrington ENTERED: 06/12/24 08:41 SP TYPE: COLON BX OTHR DR: Dr. Bret Batista DO Tissues: A - Rectum, NOS B - Rectum, NOS Procedures: Surgery Specimen Level IV HEADER OPERATION: Flexible sigmoidoscopy with biopsy, bipolar electrohemostasis PRE-OP DIAGNOSIS: Ulcerative colitis TISSUE SUBMITTED: A- Rectum and sigmoid colon biopsy, B- Anal rectal verge biopsy MICROSCOPIC DIAGNOSIS A. Rectum and sigmoid colon, biopsy: Mild chronic active colitis. See comment. B. Anal rectal verge, biopsy: Fragments of anorectal mucosa with glandular distortion and chronic inflammation. Active inflammation is not seen. No evidence of dysplasia. See comment. 06/15/2024 COMMENT A. The specimen shows mild glandular distortion and cryptitis. Crypt abscesses or granulomas are not seen. No evidence for dysplasia. Correlation with clinical, endoscopic findings and appropriate follow up are necessary. Please make reference to previous specimen [id number] colon, random biopsy and rectal biopsy with diagnosis of moderate chronic active colitis. MICROSCOPIC DESCRIPTION Slides are reviewed. GROSS DESCRIPTION A. Received in fixative is one container labeled with the patient's name and designated Rectum and sigmoid colon biopsy. The specimen consists of multiple irregular fragments of light rubi soft tissue that in aggregate measure 0.8 x 0.3 x 0.2 cm. The specimen is totally submitted in one cassette. B. Received in fixative is one container labeled with the patient's name and designated Anal rectal verge biopsy. The specimen consists of two irregular fragments of light rubi soft tissue that in aggregate measure 0.5 x 0.4 x 0.1 cm. The specimen is totally submitted in one cassette. 06/12/2024 TC:2 CPT:92982x9
--- NOTE | 2024-06-11 11:50 | OP.CCLET_ITS ---
06/11/2024 Bret Batista Re : Flexible Sigmoidoscopy procedure for Job Crook Dear Dr. Batista This procedure was performed on May. My impressions and recommendations are as follows: Impressions : - Perianal skin tags found on perianal exam. - External and internal hemorrhoids. - Anal papilla(e) were hypertrophied. Biopsied. - Mild (Rodríguez Score 1) ulcerative colitis, improved since the last examination. Biopsied. Recommendations : - Use fiber, for example Citrucel, Fibercon, Konsyl or Metamucil. My findings are described in the full procedure note, which is enclosed. If I can be of further assistance, please feel free to contact me at . Sincerely, Edi Friend, 06/11/2024 11:49:53 AM This report has been signed electronically.
--- NOTE | 2024-06-11 11:50 | OP.FLEXSIG_ITS ---
Patient Name: Job Crook Procedure Date: 06/11/2024 11:22 AM Date of : 1965 Age: 59 Procedure: Flexible Sigmoidoscopy Indications: High risk colon cancer surveillance: Ulcerative left sided colitis of 8 (or more) years duration Providers: Edi Desai DO Referring MD: Bret Batista Medicines: Monitored Anesthesia Care Patient Profile: This is a 59 year old male. Refer to note in patient chart for documentation of history and physical. Last Colonoscopy: 1 year ago. Complications: No immediate complications. Procedure: Pre-Anesthesia Assessment: - Prior to the procedure, a History and Physical was performed, and patient medications and allergies were reviewed. The patient is competent. The risks and benefits of the procedure and the sedation options and risks were discussed with the patient. All questions were answered and informed consent was obtained. Patient identification and proposed procedure were verified by the physician in the pre-procedure area. Mental Status Examination: alert and oriented. Airway Examination: normal oropharyngeal airway and neck mobility. Respiratory Examination: clear to auscultation. CV Examination: normal. ASA Grade Assessment: II - A patient with mild systemic disease. After reviewing the risks and benefits, the patient was deemed in satisfactory condition to undergo the procedure. The anesthesia plan was to use monitored anesthesia care (MAC). Immediately prior to administration of medications, the patient was re-assessed for adequacy to receive sedatives. The heart rate, respiratory rate, oxygen saturations, blood pressure, adequacy of pulmonary ventilation, and response to care were monitored throughout the procedure. The physical status of the patient was re-assessed after the procedure. After obtaining informed consent, the endoscope was passed under direct vision. Throughout the procedure, the patient's blood pressure, pulse, and oxygen saturations were monitored continuously. The Colonoscope was introduced through the anus and advanced to the splenic flexure. The flexible sigmoidoscopy was accomplished without difficulty. The patient tolerated the procedure well. The quality of the bowel preparation was adequate. Scope In: 11:32:52 AM Scope Out: 11:40:32 AM Total Procedure Duration Time 0 hours 7 minutes 40 seconds Findings: Skin tags were found on perianal exam. External and internal hemorrhoids were found during retroflexion. The hemorrhoids were Grade II (internal hemorrhoids that prolapse but reduce spontaneously). Anal papilla(e) were hypertrophied. Biopsies were taken with a cold forceps for histology. Verification of patient identification for the specimen was done. Estimated blood loss was minimal. Inflammation was found in a continuous and circumferential pattern from the anus to the sigmoid colon. This was graded as Rodríguez Score 1 (mild, with erythema, decreased vascular pattern, mild friability), and when compared to the previous examination, the findings are improved. Biopsies were taken with a cold forceps for histology. Verification of patient identification for the specimen was done. Estimated blood loss was minimal. Impression: - Perianal skin tags found on perianal exam. - External and internal hemorrhoids. - Anal papilla(e) were hypertrophied. Biopsied. - Mild (Rodríguez Score 1) ulcerative colitis, improved since the last examination. Biopsied. Recommendation: - Use fiber, for example Citrucel, Fibercon, Konsyl or Metamucil. Procedure Code(s): --- Professional --- 15580, Sigmoidoscopy, flexible; with biopsy, single or multiple CPT copyright 2021 [employer]. All rights reserved. The codes documented in this report are preliminary and upon hydraulic press operator review may be revised to meet current compliance requirements. Edi Desai DO 06/11/2024 11:49:53 AM This report has been signed electronically. Number of Addenda: 0 Note Initiated On: 06/11/2024 11:22 AM
--- NOTE | 2024-06-11 11:51 | PCM.POST.ANE ---
Anesthesia: Postop Eval I Current Vital Signs Temperature: 97.6 F Pulse Rate: 76 Blood Pressure: 104/69 Respiratory Rate: 16 Pulse Ox: 97 Oxygen Delivery Method: Room Air Assessment Airway patent: Yes Spontaneous unlabored respirations: Yes Mental status: Asleep nausea: No Vomiting: No Anesthesia Complication: No Fluid Hydration Crystalloid volume administer (ml): 40 Total IV fluid infused: 40 Progress Note Anesthesia document: Postop Eval 1 completed: Yes
--- NOTE | 2024-06-11 13:46 | PCM.POSTANE2 ---
Anesthesia Postop Eval I Sum Postop Eval Completion status Anesthesia document: Postop Eval 1 completed: Yes Anesthesia Postop Eval I Summary Anesthesia Postop Eval I Summary: Anesthesia Postop Eval I: Assessment Summary Airway patent Yes 06/11/24 11:53 [email or web address] Spontaneous unlabored Yes 06/11/24 11:53 [email or web address] respirations Mental status Asleep 06/11/24 11:53 [email or web address] nausea No 06/11/24 11:53 [email or web address] Vomiting No 06/11/24 11:53 [email or web address] Anesthesia Postop Eval I: Fluid Summary Crystalloid volume administer 40 06/11/24 11:53 [email or web address] (ml) Colloids volume administered ( ml) Blood Product volume administered (ml) Total IV fluid infused 40 06/11/24 11:53 [email or web address] Anesthesia Postop Eval I: Summary Notes Anesthesia Complication No 06/11/24 11:53 [email or web address] Anesthesia Complication Comment: Post-operative progress note Anesthesia: Postop Eval II Evaluation Mental status: Awake and Calm Pain Level: 0 nausea: No Vomiting: No Complications Anesthesia Complication: No
== END 2024-06-11 12:33 | disposition home or self-care (01) ==
LOC: EN 09:47 → AC 09:48
PROVIDERS: PCP Family Medicine; Referring Provider Family Medicine; Visit Provider Internal Medicine Gastroenterology
PROC: 0DJD8ZZ Inspection of Lower Intestinal Tract, Via Natural or Artificial Opening Endoscopic (ICD-10-PCS; CPT 45330; principal; 2024-06-11 10:40)
DX: K51.311 Ulcerative (chronic) rectosigmoiditis with rectal bleeding (principal); Z87.891 Personal history of nicotine dependence; K64.1 Second degree hemorrhoids; Q82.8 Other specified congenital malformations of skin; K62.89 Other specified diseases of anus and rectum
CPT/HCPCS: 45331; 88305; A4216; J2405

== ENCOUNTER → 2025-04-30 | Outpatient (CLI) | payer BC, SELFPAY ==
[2025-04-30 12:08] LABS: Hematocrit 46.2 % (40-54); Hemoglobin 15.3 g/dL (13.0-16.5); Immature Granulocytes Count 0.010 X10^3/uL (0.0-0.0); Mean Corp Hgb Conc 33.1 g/dL (32-36); Mean Corpuscular Volume 88.2 fL (80-94); Mean Platelet Vol. 11.8 fl (6.2-12.0); NRBC Flagged by Analyzer 0 % (0-5); POSITIVE COUNT YES; RBC Distribution Width CV 12.4 % (11.6-14.6); RBC Distribution Width SD 40.2 fl (35.1-43.9); Red Blood Count 5.24 M/mm3 (4.6-6.2); White Blood Count 8.3 K/mm3 (4.4-11.0)
[2025-04-30 12:24] LABS: AST(SGOT) 20 U/L (<=37); Alanine Aminotransfer ALT/SGPT 11 U/L (<=46); Albumin, Serum 4.0 g/dL (3.4-4.8); Alkaline Phosphatase 81 U/L (40-129); Anion Gap 9 (5-15); BUN 11 mg/dL (4-19); BUN/Creat Ratio 11.4 RATIO (10-20); Calcium,Total 9.4 mg/dL (7.6-11.0); Carbon Dioxide 26.6 mmol/L (21.0-32.0); Chloride 105 mmol/L (98-108); Globulin 3.1 g/dL (2.2-4.2); Glucose 98 mg/dL (70-99); PSA,Total - Annual Screen 2.83 ng/mL (0.02-4.00); Potassium 4.2 mmol/L (3.3-5.1)
[2025-04-30 12:42] LABS: Differential Indicated SCAN CRITERIA MET
== END | disposition home or self-care (01) ==
LOC: LAB 10:53
PROVIDERS: PCP Family Medicine; Referring Provider Family Medicine; Visit Provider Family Medicine
DX: Z00.00 Encounter for general adult medical examination without abnormal findings (principal)
CPT/HCPCS: 36415; 80053; 84153; 84154; 85025; G0103

== ENCOUNTER → 2025-05-11 | Outpatient (CLI) | payer BC, SELFPAY ==
[2025-05-13 12:08] LABS: PSA, Free 0.39 ng/mL; PSA, Free % 8.9 % (.); PSA, Total Ultrasensitive 4.380 ng/mL (0.000-4.000)
== END | disposition home or self-care (01) ==
LOC: LAB 13:35
PROVIDERS: PCP Family Medicine; Referring Provider Family Medicine; Visit Provider Family Medicine
DX: Z00.00 Encounter for general adult medical examination without abnormal findings (principal)
CPT/HCPCS: 84153; 84154